=== PATIENT | male | born 1945 ===

== ENCOUNTER 2021-05-05 06:00 | Outpatient (RCR) | payer MEDICARE, SELFPAY | END 2021-05-17 23:59 | disposition home or self-care (01) | LOC: MPT 06:00 | PROVIDERS: PCP Family Medicine; Referring Provider Family Medicine; Visit Provider Family Medicine | DX: I69.359 Hemiplegia and hemiparesis following cerebral infarction affecting unspecified side (principal) | CPT/HCPCS: 97110; 97140; 97162 ==

== ENCOUNTER 2021-05-18 06:00 | Outpatient (RCR) | payer MEDICARE, SELFPAY | END 2021-06-16 23:59 | disposition home or self-care (01) | LOC: MPT 06:00 | PROVIDERS: PCP Family Medicine; Visit Provider Family Medicine | DX: I69.398 Other sequelae of cerebral infarction (principal); Z74.09 Other reduced mobility; M62.81 Muscle weakness (generalized); Z99.89 Dependence on other enabling machines and devices | CPT/HCPCS: 97110; 97116; 97140 ==

== ENCOUNTER 2021-06-17 06:00 | Outpatient (RCR) | payer MEDICARE, SELFPAY | END 2021-07-17 23:59 | disposition home or self-care (01) | LOC: MPT 06:00 | PROVIDERS: PCP Family Medicine; Visit Provider Family Medicine | DX: I63.231 Cerebral infarction due to unspecified occlusion or stenosis of right carotid arteries (principal); Z74.09 Other reduced mobility; Z91.81 History of falling; M62.81 Muscle weakness (generalized); Z99.89 Dependence on other enabling machines and devices | CPT/HCPCS: 97110; 97112 ==